=== PATIENT | male | born 1945 | race Two or more races ===

== ENCOUNTER 2023-05-17 14:37 | Outpatient (OUT) | payer MEDICARE, OTHER, SELFPAY ==
[2023-05-17 14:55] LABS: Basophils Absolute Auto 0.1 10^3/uL (0.0-0.1); Eosinophils Absolute Auto 0.3 10^3/uL (0.0-0.7); Eosinophils Percent Auto 5.1 % (0.9-7.0); Hematocrit 42.6 % (42.0-54.0); Immature Granulocytes Abs Auto 0.02 10^3/uL (0.00-0.03); Immature Granulocytes Pct Auto 0.3 % (0.0-0.5); Lymphocytes Percent Auto 16.8 % (20.5-60.0); Mean Corpuscular HGB Conc 32.9 g/dL (29.9-35.2); Mean Corpuscular Volume 94.2 fL (80.0-94.0); Mean Platelet Volume 10.5 fL (9.5-13.5); Monocytes Absolute Auto 0.6 10^3/uL (0.3-0.8); Monocytes Percent Auto 9.4 % (1.7-12.0); Neutrophils Percent Auto 67.4 % (43.0-75.0); Platelet Count 170 10^3/uL (150-450); Red Blood Count 4.52 10^6/uL (4.70-6.10); Red Cell Distribution Width 13.1 % (11.0-15.0); White Blood Count 5.9 10^3/uL (4.0-11.0)
[2023-05-17 15:55] LABS: Alanine Aminotransferase 38 U/L (16-63); Albumin Globulin Ratio 1.1; Albumin Level 3.6 g/dL (3.4-5.0); Alkaline Phosphatase 108 U/L (46-116); Anion Gap 12.5; Aspartate Amino Transferase 20 U/L (15-37); Bilirubin Total 1.1 mg/dL (0.2-1.0); Calcium 8.7 mg/dL (8.5-10.1); Carbon Dioxide 28.5 mmol/L (21.0-32.0); Chloride 105 mmol/L (98-107); Chol HDL Ratio 2.3; Cholesterol 122 mg/dL (<=200); Estimated GFR (African America >60 (>=60); Estimated GFR (Non-African Ame >60 (>=60); Globulin 3.2 g/dL; Glucose 110 mg/dL (74-106); HDL Cholesterol 54 mg/dL (40-60); LDL Cholesterol Calculated 41.6 mg/dL; Sodium 142 mmol/L (136-145); Total Protein 6.8 g/dL (6.4-8.2); Triglycerides 132 mg/dL (<=150); VLDL CHOLESTEROL 26.4 mg/dL
== END 2023-05-17 14:38 | disposition home or self-care (01) ==
PROVIDERS: PCP Family Medicine; Visit Provider Nurse Practitioner Acute Care
DX: I25.10 Atherosclerotic heart disease of native coronary artery without angina pectoris (principal)
CPT/HCPCS: 36415; 80053; 80061; 85025

== ENCOUNTER 2025-06-05 12:57 | Outpatient (OUT) | payer MEDICARE, OTHER, SELFPAY ==
--- NOTE | 2025-06-05 13:00 | CA_ITS ---
Patient Name: MARQUISE MORE MR#: [id number] : 1945 Exam Date: 06/05/2025 Ordering Doctor: GIOVANNY HEARN CNP ECHOCARDIOGRAM REPORT PROCEDURE: CA ECHO DOPPLER COMPLETE INDICATIONS: [id number] COMPARISON: None. DESCRIPTION: COMPLETE ECHOCARDIOGRAM Real-time transthoracic echocardiography with 2D, M-mode, spectral and color flow Doppler performed. QUALITY: Technical quality was good. LEFT VENTRICLE: Normal chamber size. Thickened septal wall. LV EF: Global left ventricular systolic function is at lower normal limits; visually estimated ejection fraction is 50%. Abnormal septal motion may be related to bundle branch block. DIASTOLIC: Grade I diastolic dysfunction. ATRIAL SEPTUM: Inadequately seen. LEFT ATRIUM: Normal chamber size. RIGHT ATRIUM: Normal chamber size. RIGHT VENTRICLE: Normal chamber size. Normal right ventricular systolic function. TRICUSPID VALVE: Normal mobility and thickness. No stenosis with mild regurgitation. No evidence of pulmonary hypertension. RVSP measures 28mmHg. MITRAL VALVE: Normal mobility and thickness. No evidence of mitral valve stenosis. There is no mitral annular calcification. Trivial mitral regurgitation. AORTIC VALVE: Normal trileaflet appearance. Mildly calcified aortic valve. Normal leaflet mobility. No evidence of aortic valve stenosis. Trivial aortic regurgitation. AORTIC ROOT: Normal diameter and appearance. The aortic root measures 3.5cm. The ascending aorta measures 3.4cm. PULMONIC VALVE: Normal thickness and mobility. No stenosis. Mild regurgitation. PERICARDIUM: No evidence of pericardial effusion. IVC: Collapses with inspiration. The IVC is normal in size measuring 1.4cm. There is an incidental finding of an anechoic area in the right lobe of the liver measuring 3.3 x 4.1cm most likely representing a liver cyst. CONCLUSION: 1. Global left ventricular systolic function is at lower normal limits; visually estimated ejection fraction is 50% 2. Mild left ventricular hypertrophy 3. Normal right ventricular size and systolic function 4. Grade 1 diastolic dysfunction 5. Mild tricuspid regurgitation 6. Mild pulmonic regurgitation 7. Anechoic structure seen within the liver likely representing a cyst; recommend hepatobiliary imaging as clinically appropriate Adult Echocardiography Procedure Report Left Ventricle LVEDD (3.7 - 5.6 cm): 4.96 cm LVESD (2.2 - 4.0 cm): 3.75 cm LVIVS thickness (0.6 - 1.2 cm): 1.29 cm LVPW thickness (0.5 - 1.0 cm): 1.01 cm e': 0.08 m/s E - e': 6.76 LVOT Max Gradient: 1.41 mm[Hg] LVOT Area (cm2): 0.59 m/s Peak Velocity (LVOT): 0.59 m/s Mean Velocity (LVOT): 0.37 m/s LVOT Diameter 2.42 cm Left Ventricular Ejection Fraction: 61.36 % Left Atrium LA Volume Index (2D A2C): 25.86 ml/m2 Left Atrium Systolic Dimension: 3.95 cm Mitral Valve MV E to A Ratio: 0.67 Mitral Valve A-Wave Peak Velocity: 0.84 m/s Mitral Valve E-Wave Peak Velocity: 0.56 m/s Right Ventricle RV Internal Diastolic Dimension: 3.75 cm Aorta AO Root Diam: 3.49 cm Ascending Ao Diam: 3.38 cm Aortic Valve AoV Area (Peak Praveen): 3.05 cm2, 3.05 cm2 AoV Area (VTI): 4.58 cm2, 4.58 cm2 Peak Velocity(Antegrade Flow): 0.89 m/s Peak Gradient(Antegrade Flow): 3.19 mm[Hg] Mean Velocity(Antegrade Flow): 0.59 m/s Mean Gradient(Antegrade Flow): 1.60 mm[Hg] Velocity Time Integral: 16.51 cm Tricuspid Valve Peak Velocity (Regurgitant Flow): 1.94 m/s, 2.50 m/s Pulmonic Valve Mean Gradient: 2.44 mm[Hg], 2.29 mm[Hg] Mean Velocity: 0.71 m/s, 0.69 m/s Peak Velocity: 1.15 m/s Peak Gradient: 5.11 mm[Hg], 5.44 mm[Hg] Right Atrium Right Atrium Systolic Pressure: 36.60 ml, 36.60 ml Dictated by: Denise Ozuna M.D. on 06/05/2025 at 16:25 Approved by: Denise Ozuna M.D. on 06/05/2025 at 16:33
--- OUTSIDE RECORDS SUMMARY | 2025-06-05 13:02 | XMS_ITS | CCD ---
Author Organization [facility] Care Team Providers Care Online Retailer Name Role Phone PHYSICIAN, DEFAULT Admitting Unavailable PHYSICIAN, DEFAULT Attending Unavailable POPEYE MCCALL Primary Care Unavailable DYLON BOTELLO Admitting Unavailable DYLON BOTELLO Attending Unavailable DR JUSTYN BOWLES Primary Care Unavailable DYLON BOTELLO Consulting Unavailable Justyn Bowles Primary Care Unavailable ROXANE CHAVEZ Attending Unavailable ROXANE CHAVEZ Admitting Unavailable GIOVANNY HEARN Attending Unavailable Unavailable Primary Care Provider Unavailabl e Allergies Allergy ClassificationReported Allergen(s)Allergy TypeDate of OnsetReaction(s) Facility (1 source)prasugrelDrug [id number] [facility] Repository (1 source)No Known Medication Allergies; Translations: [No Known Medication Allergies]Propensity to adverse reactions to drug (disorder)[facility] Repository (1 source)prasugrel; Translations: [PRASUGREL]Drug Ganlttm07-07-5840AyiyiwfdlqDetw[facility] Rep[facility] Problems Problem ClassificationProblemDateDocumented DateEpisodic/ChronicCongestive heart failure; nonhypertensive (3 sources)Chronic systolic (congestive) heart failure; Translations: [Chronic diastolic (congestive) heart failure]Onset: 17-03-2602ZgqmnzhQvjcybfs atherosclerosis and other heart disease (4 sources)Atherosclerotic heart disease of [place] coronary artery without angina pectoris; Translations: [ASHD GALENA CA W/O ANGINA PECTORIS]Onset: 53-65-9014GzllawjLggjozkdq of lipid metabolism (1 source)Mixed hyperlipidemia; Translations: [MIXED HYPERLIPIDEMIA]Onset: 16-83-2543Etbmcwa Results Test NameValueInterpretationReference RangeFacilityOffice Visiton 06-06-2024 Follow-up [id number] Marquise Ornelas 1945 M Date Provider Department Center 06/06/2024 GIOVANNY VENEGAS [facility] Family History Adopted: Yes Level of Service:40893 ME OFFICE/OUTPATIENT ESTABLISHED MOD MDM 30 MIN Reason for Visit and Comments: Hypertension [796316] Hyperlipidemia [182] Coronary Artery Disease [187]NormalParma Community General HospitalCBC AUTO DIFFon 17-64-6678JVJA #0.0 103/ulNormal0.0-0.1The [facility] AvonComment on above:Performed By: #### CBC #### [facility] Laboratory [address] [place] [address] Dr. Michelle MckeonBasophils/100 WBC (Bld)0.7 %Normal0.2-2.0[facility] Comment on above:Performed By: #### CBC #### [facility] Laboratory [address] [address] [address] Michelle Carver #0.3 103/ulNormal0.0-0.7The [facility], AvonComment on above: Performed By: #### CBC #### [facility] Laboratory [address] [place] [address] Dr. Michelle Laosinophils/100 WBC (Bld)5.6 %Normal0.9-7.0[facility] Comment on above:Performed By: #### CBC #### [facility] [address] [place] [address] Dr. Michelle Larythrocyte distribution width (RBC) [Ratio]13.2 %Ebqgod58.0-15.0 [facility] HospitalComment on above:Performed By: #### CBC #### [facility] Laboratory [address] [place] [address] Dr. Michelle MckeonHematocrit (Bld) [Volume fraction]44.7 %Zfxkif17.0-54.0[facility] HospitalComment on above:Performed By: #### CBC #### [facility] Laboratory [address] [place] [address] Dr. Michelle MckeonHemoglobin (Bld) [Mass/Vol]14.8 g/qEVomuhw93.0-18.0The [facility], AvonComment on above:Performed By: #### CBC #### [facility] Laboratory [address] [place] [address] Dr. Michelle King #0.01 10e3/ulNormal0.00-0.03The [facility], AvonComment on above:Performed By: #### CBC #### [facility] Laboratory [address] [place] [address] Dr. Michelle King %0.2 %Normal0.0-0.5The [facility], AvonComment on above: Performed By: #### CBC #### [facility] Laboratory [address] [place] [address] Dr. Michelle Leahy #1.0 103/ulCritically low1.2-3.8The [facility] Comment on above:Performed By: #### CBC #### [facility] Laboratory [address] [place] [address] Dr. Michelle Elainehocytes/100 WBC (Bld)17.7 %Critically low20.5-60.0The [facility], AvonComment on above:Performed By: #### CBC #### [facility] Laboratory [address] [place] [address] Dr. Michelle BassettMARTIN MEMORIAL [facility] DIFF REQNONormalThe [facility], AvonComment on above: Performed By: #### CBC #### [facility] Laboratory [address] [place] [address] Dr. Michelle Beltrán (RBC) [Entitic mass]29.9 ttHumnfz76.9-34.0The [facility], AvonComment on above:Performed By: #### CBC #### [facility] Laboratory [address] [place] [address] Dr. Michelle Beltrán (RBC) [Mass/Vol]33.1 g/jJRbqifx37.9-35.2The [facility], AvonComment on above:Performed By: #### CBC #### [facility] Laboratory [address] [place] [address] Dr. Michelle BeltránV (RBC) [Entitic vol]90.3 wPSbahfv05.0-94.0The [facility], AvonComment on above:Performed By: #### CBC #### [facility] Laboratory [address] [place] [address] Dr. Michelle Marie #0.5 103/ulNormal0.3-0.8The [facility], AvonComment on above:Performed By: #### CBC #### [facility] Laboratory [address] [place] [address] Dr. Michelle Rodgersocytes/100 WBC (Bld)9.2 %Normal1.7-12.0The [facility] Comment on above:Performed By: #### CBC #### [facility] Laboratory [address] [place] [address] Dr. Michelle Lopez #3.9 103/ulNormal1.4-6.5The [facility], AvonComment on above:Performed By: #### CBC #### [facility] Laboratory [address] [place] [address] Dr. Michelle Chambersutrophils/100 WBC (Bld)66.6 %Fkjzyh91.0-75.0The [facility], AvonComment on above:Performed By: #### CBC #### [facility] Laboratory [address] [place] [address] Dr. Michelle Wood mean volume (Bld) [Entitic vol]10.0 fLNormal9.5-13.5The [facility], AvonComment on above:Performed By: #### CBC #### [facility] Laboratory [address] [place] [address] Dr. Michelle MckeonPLT175 103/moHzoims375-459Imk [facility], AvonComment on above: Performed By: #### CBC #### [facility] Laboratory [address] [place] [address] Dr. Michelle MckeonRBC4.95 106/ulNormal4.70-6.10The [facility], AvonComment on above:Performed By: #### CBC #### [facility] Laboratory [address] [place] [address] Dr. Yilan ChangWBC5.9 103/ulNormal4.0-11.0[facility] HospitalComment on above: Performed By: #### CBC #### [facility] [address] [address] [address] Michelle LoftonID PROFILEon 08-49-8410GPFL-HDL RATIO NORMSDayton VA Medical CenterComment on above:Result Comment: 3.3 - 4.4 LOW RISK 4.4 - 7.1 AVERAGE RISK 7.1 - 11.0 MODERATE RISK >11.0 HIGH RISKPerformed By: #### LIPID, CMP #### [facility] [address] [address] [address] Michelle MckeonCholesterol [Mass/Vol]124 mg/dLNormal<=200The [facility] Comment on above:Performed By: #### LIPID, CMP #### [facility] [address] [address] [address] Michelle MckeonCholesterol in HDL [Mass/Vol]56 mg/xDQkezrg74-34Rob [facility], AvonComment on above:Performed By: #### LIPID, CMP #### [facility] [address] [address] [address] Michelle MckeonCholesterol in LDL [Mass/Vol]53.2 mg/dLFairfield Medical CenterComment on above:Performed By: #### LIPID, CMP #### [facility] [address] [address] [address] Michelle Burdickesterkori.total/Cholesterol in HDL [Mass ratio]2.2 {ratio} NormalPromedica Fostoria Community HospitalComment on above:Performed By: #### LIPID, CMP #### [facility] [address] [address] [address] Michelle MckeonHDL NORMAL> or = 60 mg/dl - LOW CARDIOVASCULAR RISK <40 mg/dl - HIGH CARDIOVASCULAR RISKFairfield Medical CenterComment on above:Performed By: #### LIPID, CMP #### [facility] [address] [address] [address] Michelle MckeonLDL CALC NORMALSEE BELOWNoSt. Mary's Medical Center, Ironton CampusComment on above:Result Comment: <100 mg/dl OPTIMAL 100 - 129 mg/dl NEAR OR ABOVE OPTIMAL 130 - 159 mg/dl BORDERLINE HIGH 160 - 189 mg/dl HIGH >190 mg/dl VERY HIGH Performed By: #### LIPID, CMP #### [facility] [address] [address] [address] Michelle MckeonTriglyceride [Mass/Vol]74 mg/dLNormal<=150The [facility] Comment on above:Performed By: #### LIPID, CMP #### [facility] [address] [address] [address] Michelle MckeonVLDL CALC14.8 mg/dLNoSt. Mary's Medical Center, Ironton CampusComment on above: Performed By: #### LIPID, CMP #### [facility] Laboratory [address] [place] [address] Dr. Michelle MckeonPROF 14(COMP METB)on 87-51-8541Acczoxv [Mass/Vol]3.8 g/dLNormal 3.4-5.0The [facility], AvonComment on above:Performed By: #### LIPID, CMP #### [facility] Laboratory [address] [place] [address] Dr. Michelle MckeonAlbumin/Globulin [Mass ratio]1.1 {ratio}NormalThe [facility], AvonComment on above:Performed By: #### LIPID, CMP #### [facility] Laboratory [address] [place] [address] Dr. Michelle Blanco [Catalytic activity/Vol]122 U/LCritically tyvv06-211Kov [facility], AvonComment on above:Performed By: #### LIPID, CMP #### [facility] Laboratory [address] [place] [address] Dr. Michelle Toledo [Catalytic activity/Vol]37 U/RFtcfsd12-14Iah [facility], AvonComment on above:Performed By: #### LIPID, CMP #### [facility] Laboratory [address] [place] [address] Dr. Michelle Cardenas gap [Moles/Vol]12.3 mmol/LNormalThe [facility] Comment on above:Performed By: #### LIPID, CMP #### [facility] [address] [address] [address] Michelle MckeonAST [Catalytic activity/Vol]23 U/BHtvcbd19-68Yne [facility], AvonComment on above:Performed By: #### LIPID, CMP #### [facility] [address] [address] [address] Michelle MckeonBilirubin [Mass/Vol]1.6 mg/dLCritically high0.2-1.0The [facility], AvonComment on above:Performed By: #### LIPID, CMP #### [facility] [address] [address] [address] Michelle MckeonCalcium [Mass/Vol]9.2 mg/dLNormal8.5-10.1The [facility] Comment on above:Performed By: #### LIPID, CMP #### [facility] [address] [address] [address] Michelle MckeonChloride [Moles/Vol]103 mmol/TPcoiad15-153Sry [facility] Comment on above:Performed By: #### LIPID, CMP #### [facility] [address] [address] [address] Michelle MckeonCO2 [Moles/Vol]28.9 mmol/HKkspni71.0-32.0The [facility] Comment on above:Performed By: #### LIPID, CMP #### [facility] [address] [address] [address] Michelle MckeonCreatinine [Mass/Vol]0.98 mg/dLNormal0.70-1.30The [facility], AvonComment on above:Performed By: #### LIPID, CMP #### [facility] [address] [address] [address] Michelle LaGFR-AF TAJIK>60Normal>=60The [facility], AvonComment on above:Performed By: #### LIPID, CMP #### [facility] Laboratory [address] [place] [address] Dr. Michelle LaGFR-NON AF TAJIK>60Normal>=60The [facility], AvonComment on above:Performed By: #### LIPID, CMP #### [facility] [address] [address] [address] Michelle MckeonGlobulin (S) [Mass/Vol]3.5 g/dLNormThe Christ HospitalComment on above:Performed By: #### LIPID, CMP #### [facility] [address] [address] [address] Michelle MckeonGlucose [Mass/Vol]113 mg/dLCritically grns71-318Eut [facility], AvonComment on above:Performed By: #### LIPID, CMP #### [facility] Laboratory [address] [address] [address] Michelle MckeonPotassium [Moles/Vol]4.2 mmol/LNormal3.5-5.1The [facility] Comment on above:Performed By: #### LIPID, CMP #### [facility] Laboratory [address] [address] [address] Michelle MckeonProtein [Mass/Vol]7.3 g/dLNormal6.4-8.2[facility] Comment on above:Performed By: #### LIPID, CMP #### [facility] [address] [address] [address] Michelle MckeonSodium [Moles/Vol]140 mmol/WZzlvkl889-854Orf [facility] Comment on above:Performed By: #### LIPID, CMP #### [facility] Laboratory [address] [address] [address] Michelle MckeonUrea nitrogen [Mass/Vol]16.0 mg/dLNormal7.0-18.0The [facility], AvonComment on above:Performed By: #### LIPID, CMP #### [facility] [address] [address] [address] Michelle Emmanuel nitrogen/Creatinine [Mass ratio]16.3 mg/mgNoSt. Mary's Medical Center, Ironton CampusComment on above:Performed By: #### LIPID, CMP #### [facility] [address] [address] [address] Michelle Mckeon Encounters Encounter DateEncounter TypeCare ProviderFacilityStart: 06-06-2024 End: 68-13-7978gtjtbeayqjBQVPPGJ [facility] Hospitaltart: 11-17-2023 End: 57-82-1259Xuguhrorg encounterKattrish Chicas Physicians CardiologyComment on above:Patient AssistanceStart: 01-19-2023 End: 33-40-6406bwehsieqfcAnwx P CallahanFacility:[facility] Hospitaltart: 05-28-2022 End: 92-73-2075nzzvqjututVPMPJBJ BOESFacility:V5Apsvh: 07-10-2018 End: 46-71-0171Ogqtont encounter procedureDEFAULT PHYSICIANFacility:[facility] Payers DatePayer CategoryPayerPolicy [id number] 2015Medicare [id number] [id number] [id number] 1960 [id number] Social History DateTypeDetailFacilityTobacco smoking status NHISTobacco smoking consumption unknownSelect Medical Specialty Hospital - Trumbullididwork SystemStart: 54-16-9219Tufreyb of Social function [facility] SystemStart: 50-52-5612ZniicrsjkQztXlqqud Health System ChildcareUnknownPKettering Health Greene Memorial SystemStart: 88-15-7314Kij assigned at birthNot on fileMayo Memorial HospitalIcontrol Networks System Progress note 06-06-2024 Note Date & PpqdJqceEmgklztk40-44-3941 NoteCardiovascular Medicine [facility] SUBJECTIVE Chief Complaint Patient presents with Hypertension Hyperlipidemia Coronary Artery Disease Marquise Ornelas is a 79 y.o. male here for follow-up. HPI PMHx: CAD s/p PCI to Lcx complicated by cardiogenic shock, HLD, HFimpEF He has been feeling well. BP at home running 120s/70s He walks his dog daily. 1.5 miles a day. No issues with walking. He doesn't add salt to foods. He does not watch his diet/eat heart healthy. Denies c/o CP, dyspnea, orthopnea, PND, LE edema, dizziness/LH, palpitations, syncope. Patient Active Problem List Diagnosis Acute myocardial infarction of lateral wall (CMS/HCC) Chronic systolic heart failure (CMS/HCC) Coronary atherosclerosis Hyperlipidemia Mitral valve regurgitation Old myocardial infarction Past Medical History: Diagnosis Date CHF (congestive heart failure) (CMS/HCC) Coronary artery disease Heart valve disease Hyperlipidemia Hypertension Family History Adopted: Yes Social History Tobacco Use Smoking status: Former Current packs/day: 0.00 Types: Cigarettes Quit date: 1973 Years since quittin.9 Smokeless tobacco: Never Substance Use Topics Alcohol use: Yes Comment: occasional Allergies Allergen Reactions Prasugrel Other ROS Skin: Positive for dry skin and itching. Musculoskeletal: Positive for joint pain. All other systems reviewed and are negative. OBJECTIVE Visit Vitals BP 130/70 (BP Location: Left arm, Patient Position: Sitting) Pulse 85 Ht 1.753 m (5' 9 ) Wt 88.5 kg (195 lb) SpO2 96% BMI 28.80 kg/m??? Smoking Status Former BSA 2.08 m??? Medications: Current Outpatient Medications: aspirin 81 mg EC tablet, in the morning., Disp: , Rfl: atorvastatin (Lipitor) 80 mg tablet, Take 1 tablet (80 mg) by mouth at bedtime., Disp: 90 tablet, Rfl: 3 lisinopril 5 mg tablet, Take 1 tablet (5 mg) by mouth in the morning., Disp: 90 tablet, Rfl: 3 metoprolol tartrate (Lopressor) 25 mg tablet, Take 1 tablet (25 mg) by mouth in the morning., Disp: 90 tablet, Rfl: 3 ticagrelor (Brilinta) 90 mg tablet, Take 1 tablet (90 mg) by mouth once daily as directed., Disp: 90 tablet, Rfl: 3 Physical Exam Constitutional: Appearance: Normal appearance. He is normal weight. HENT: Head: Normocephalic and atraumatic. Right Ear: External ear normal. Left Ear: External ear normal. Eyes: Extraocular Movements: Extraocular movements intact. Pupils: Pupils are equal, round, and reactive to light. Neck: Vascular: No carotid bruit. Cardiovascular: Rate and Rhythm: Normal rate and regular rhythm. Pulses: Normal pulses. Heart sounds: Normal heart sounds. Pulmonary: Effort: Pulmonary effort is normal. Breath sounds: Normal breath sounds. Abdominal: General: Bowel sounds are normal. Palpations: Abdomen is soft. Musculoskeletal: General: Normal range of motion. Cervical back: Neck supple. Right lower leg: No edema. Left lower leg: No edema. Skin: General: Skin is warm and dry. Neurological: General: No focal deficit present. Mental Status: He is alert and oriented to person, place, and time. Psychiatric: Mood and Affect: Mood normal. Behavior: Behavior normal. Thought Content: Thought content normal. Judgment: Judgment normal. Labs: No results found for any previous visit. No results found for: EXTCMP , BMPR1A , CBCDIF , BNP , LASAP , RED 05/17/2023 CBC - unremarkable 08/16/2021 WBC 5.9, hemoglobin 14.8, hematocrit 44.7, platelets 175 Sodium 140, potassium 4.2, chloride 103, CO2 28.9, BUN 16, serum creatinine 0.98, estimated GFR greater than 60% Total cholesterol 124, HDL 56, triglycerides 74, LDL 53.2 Testing/Procedures: Echocardiogram: 07/10/2018 Global left ventricular systolic function is normal (visually estimated EF 55%) Left ventricle is normal in size Left ventricle wall thickness is normal Regional wall motion abnormalities are noted Normal diastolic function Normal right ventricular systolic function The left atrium is normal in size Unable to assess right-sided pressures due to lack of measurable tricuspid regurgitation Regional wall motion abnormalities with hypokinesis of the basal inferior and inferolateral snow. There are no prior cardiogram for comparison Coronary angiography: 01/06/2011 Severe single-vessel coronary artery disease Successful angioplasty and stent placement left circumflex coronary artery Mild pulmonary hypertension with a moderately reduced cardiac index Severely elevated left ventricular diastolic pressure Successful placement of intra-aortic balloon pump Recommendations Patient will be maintained on aspirin for life Patient will be maintained on Effient for 1 year Patient will be maintained on Angiomax following balloon pump is in place Patient has been placed on Lipitor Beta-jovani and AGUSTINA inhibitor have not been started due to cardiogenic shock (more content not included)...[facility] Progress note 06-06-2024 Note Date & PmggFdmhDuguxdjs54-41-2013 NotePatient here for 1 year follow up CAD, HFiEF, and hyperlipidemia. No recent labs/imaging since last year. Denies chest pain, SOB, palpitations, and lightheadedness/syncope. Review of Systems Skin: Positive for dry skin and itching. Musculoskeletal: Positive for joint pain. All other systems reviewed and are negative.[facility] Note 11-17-2023 Note Date & PllfBqfhQfhuwygt98-99-0199 Miscellaneous Notes* Telephone Encounter - Lisbet Manjarrez CNA - 11/17/2023 11:13 AM EDT Per Valentine with [employer] patient assistance, patient did not send in application for review. documented in this encounterMayo Memorial HospitalIcontrol Networks System Telephone encounter Note 11-17-2023 Note Date & KsnsJzkxEretxahh50-53-6462 Telephone encounter Note* Telephone Encounter - Lisbet Manjarrez CNA - 11/17/2023 11:13 AM EDT Per Valentine with [facility] patient assistance, patient did not send in application for review. [facility]Bio[facility] System Instructions Note Date & TypeNoteFacilityInstructionsNot on filedocumented in this encounter [facility]Bio[facility] System Summary Purpose Family History No Family History Records FoundNo Family History Records FoundNo Family History Records FoundNo Family History Records Found Advance Directives No Advanced Directives Records FoundNo Advanced Directives Records FoundNo Advanced Directives Records FoundNo Advanced Directives Records Found Additional Source Comments (unrecognized sect ion and content) No Status Records FoundNo Status Records FoundNo Status Records FoundNo Status Records Found INFORMATION SOURCE (unrecogn ized section and content) DATE CREATED AUTHOR 07/15/2018 [facility] DATE CREATED AUTHOR AUTHOR'S ORGANIZ ATION 06/05/2022 [facility] DATE CREATED AUTHOR AUTHOR'S ORGANIZ ATION 04/07/2024 [facility] DATE CREATED AUTHOR AUTHOR'S ORGANIZ ATION 06/09/2024 [facility] Reason for Visit (unrecogniz ed section and content) ReasonOnset DateCommentsPatient Ulqrwgzqeh11/23/2024 FOR RECORDS PERTAINING TO PATIENTS WHO ARE OR HAVE BEEN ENROLLED IN A CHEMICAL DEPENDENCY/SUBSTANCEABUSE PROGRAM, SOME INFORMATION MAY BE OMITTED. This clinical summary was aggregated from multiple sources. Caution should be exercised in using it in the provision of clinical care. This summary normalizes information from multiple sources, and as a consequence, information in this document may materially change the coding, format and clinical context of patient data. In addition, data may be omitted in some cases. CLINICAL DECISIONS SHOULD BE BASED ON THE PRIMARY CLINICAL RECORDS. [employer] provides no warranty or guarantee of the accuracy or completeness of information in this document.
== END 2025-06-05 12:58 | disposition home or self-care (01) ==
LOC: CARD 12:59
PROVIDERS: PCP Family Medicine; Visit Provider Nurse Practitioner Family
DX: I50.32 Chronic diastolic (congestive) heart failure (principal)
CPT/HCPCS: 93306